=== PATIENT | female | born 1985 | race African-American/Black ===

== ENCOUNTER 2020-12-03 19:55 | Emergency (ER) | payer BC, SELFPAY ==
[2020-12-03 21:33] LABS: Urine Blood 3+ (Negative); Urine Glucose Negative (Negative); Urine Protein Negative (Negative)
[2020-12-03 21:36] LABS: Absolute Lymphocytes (CBC) 0.9 K/uL (0.7-4.9); Basophils % 0.3 % (0-1.3); Hematocrit 32.8 % (36.0-45.0); Lymphocytes % 8.5 % (15.3-44.8); MPV 8.6 fL (7.6-11.3); RBC Red Blood Cell Count 3.86 M/uL (3.86-4.86)
[2020-12-03 21:46] LABS: Protime INR 1.15
[2020-12-03 21:53] LABS: ALT/SGPT 30 U/L (12-78); AST/SGOT 32 U/L (15-37); Albumin 3.8 g/dL (3.4-5.0); Alkaline Phosphatase 104 U/L (45-117); BUN Blood Urea Nitrogen 9 mg/dL (7-18); Bicarbonate 30 mmol/L (21-32); Bilirubin Direct < 0.1 mg/dL (0-0.2); Bilirubin Total 0.3 mg/dL (0.2-1.0); Glucose Level 98 mg/dL (74-106); Potassium 3.7 mmol/L (3.5-5.1); Protein, Total 8.3 g/dL (6.4-8.2); Sodium Level 140 mmol/L (136-145)
--- NOTE | 2020-12-04 00:02 | ER ---
Nurse's Notes [facility] Name: Geno Rianey Age: 35 yrs Sex: Female : 1985 Arrival Date: 12/03/2020 Time: 19:56 Bed 14 Private MD: Diagnosis: Vaginal Bleeding;Postoperative Bleeding, Hysterectomy Presentation: 12/03 20:08 Chief complaint: Patient states: 'I had a hysterectomy on 11/24/20 and today I began vg1 bleeding bright red. Spoke with the CUSTOMS COMPLIANCE DIRECTOR and they told me to come in. I am also having pain behind my Right Knee.'. Coronavirus screen: Client denies travel out of the [place] in the last 14 days. Ebola Screen: Patient negative for fever greater than or equal to 101.5 degrees Fahrenheit, and additional compatible Ebola Virus Disease symptoms. Initial Sepsis Screen: Does the patient meet any 2 criteria? No. Patient's initial sepsis screen is negative. Does the patient have a suspected source of infection? No. Patient's initial sepsis screen is negative. Risk Assessment: Do you want to hurt yourself or someone else? Patient reports no desire to harm self or others. Onset of symptoms was December 03, 2020. 20:08 Method Of Arrival: Ambulatory vg1 20:08 Acuity: NICOLE 3 vg1 Triage Assessment: 20:10 General: Appears in no apparent distress. comfortable, Behavior is calm, cooperative. vg1 Pain: Complains of pain in umbilical area and suprapubic area Pain currently is 7 out of 10 on a pain scale. : Reports vaginal bleeding that is bright red, since today. CUSTOMS COMPLIANCE DIRECTOR: 20:10 LMP N/A - Hysterectomy vg1 Historical: - Allergies: 20:10 No Known Allergies; vg1 - Home Meds: 20:10 Metoprolol Tartrate Oral [Active]; Meclizine Oral [Active]; vg1 - PMHx: 20:10 Hypertension; mitral valve prolapse; vg1 - PSHx: 20:10 Hysterectomy; vg1 - Immunization history:: Adult Immunizations up to date, Client reports receiving the 2nd dose of the Covid vaccine. - Social history:: Smoking status: Patient denies any tobacco usage or history of. Screenin:30 Abuse screen: Denies threats or abuse. Denies injuries from another. Nutritional wh screening: No deficits noted. Tuberculosis screening: No symptoms or risk factors identified. Fall Risk None identified. Assessment: 22:30 General: Appears in no apparent distress. Behavior is calm, cooperative, appropriate wh for age. Pain: Denies pain. Neuro: Level of Consciousness is awake, alert, obeys commands, Oriented to person, place, time, situation, Appropriate for age. Cardiovascular: Capillary refill < 3 seconds. Respiratory: Airway is patent Respiratory effort is even, unlabored, Respiratory pattern is regular, symmetrical. GI: Abdomen is flat, non-distended. : Reports vaginal bleeding that is bright red, moderate flow. EENT: No signs and/or symptoms were reported regarding the EENT system. Derm: Skin is intact, is healthy with good turgor, Skin is pink, warm \T\ dry. normal. Musculoskeletal: Circulation, motion, and sensation intact. 12/04 00:00 Reassessment: Patient appears in no apparent distress at this time. No changes from previously documented assessment. Patient and/or family updated on plan of care and expected duration. Pain level reassessed. Patient is alert, oriented x 3, equal unlabored respirations, skin warm/dry/pink. Vital Signs: 12/03 20:08 BP 122 / 88; Pulse 105; Resp 16; Temp 98.7(O); Pulse Ox 100% ; Weight 77.56 kg; Height vg1 5 ft. 5 in. (165.10 cm); Pain 7/10; 22:00 BP 121 / 82; Pulse 97; Resp 18; Pulse Ox 99% on R/A; wh 12/04 00:00 BP 117 / 86; Pulse 82; Resp 18; Pulse Ox 99% on R/A; wh 12/03 20:08 Body Mass Index 28.46 (77.56 kg, 165.10 cm) vg1 ED Course: 12/03 19:56 Patient arrived in ED. bp1 20:10 Triage completed. vg1 20:10 Arm band placed on. vg1 20:29 Kamlesh Galvan, ASHLEY is Primary Nurse. wh 20:45 Jd Jauregui MD is Attending Physician. mh7 21:00 Patient has correct armband on for positive identification. Bed in low position. Call light in reach. Side rails up X 1. Pulse ox on. NIBP on. 21:00 No provider procedures requiring assistance completed. Inserted saline lock: 20 gauge in right antecubital area, using aseptic technique. Blood collected. 21:41 US Extremity Venous Unilateral Ltd In Process Unspecified. EDMS 22:14 CT Abd/Pelvis - IV Contrast Only In Process Unspecified. EDMS 06 00:15 IV discontinued, intact, bleeding controlled, No redness/swelling at site. wh Administered Medications: No medications were administered Outcome: 00:02 Discharge ordered by MD. engel 00:15 Discharged to home ambulatory, with family. wh 00:15 Condition: stable 00:15 Discharge instructions given to patient, family, Instructed on discharge instructions, follow up and referral plans. POC Demonstrated understanding of instructions, follow-up care, POC 00:16 Patient left the ED. Signatures: Dispatcher [employer] EDMS Kamlesh Galvan, RN ASHLEY Lindy Ness RN RN vg1 Vangie Cornelius Maurice, MD MD 7
--- NOTE | 2020-12-04 00:02 | EDPHYS ---
Physician Documentation [facility] Name: Geno Rainey Age: 35 yrs Sex: Female : 1985 Arrival Date: 12/03/2020 Time: 19:56 Bed 14 Private MD: ED Physician Jd Jauregui HPI: 12/03 22:18 This 35 yrs old Black Female presents to ER via Ambulatory with complaints of Vaginal mh7 Bleeding, Post Surgical Bleeding. 22:18 The patient presents with vaginal bleeding that is moderate. Onset: The mh7 symptoms/episode began/occurred today. Modifying factors: The symptoms are alleviated by nothing, the symptoms are aggravated by nothing. Associated signs and symptoms: Pertinent negatives: constipation, cramping, diarrhea, dyspareunia, dysuria, fever, hematuria, nausea, urinary frequency, vaginal discharge, vomiting. Severity of symptoms: At their worst the symptoms were moderate, earlier today, in the emergency department the symptoms have improved, moderately. States that she had a hysterectomy one week ago and started having vaginal bleeding similar to a menstrual period today. Also complains of pain behind her right knee that started this morning. She denies any other complaints.. 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 - Social history:: Smoking status: Patient denies any tobacco usage or history of. ROS: 22:18 Constitutional: Negative for fever, chills, and weight loss, Eyes: Negative for injury, mh7 pain, redness, and discharge, ENT: Negative for injury, pain, and discharge, Neck: Negative for injury, pain, and swelling, Cardiovascular: Negative for chest pain, palpitations, and edema, Respiratory: Negative for shortness of breath, cough, wheezing, and pleuritic chest pain, Abdomen/GI: Negative for abdominal pain, nausea, vomiting, diarrhea, and constipation, Back: Negative for injury and pain, Skin: Negative for injury, rash, and discoloration, Neuro: Negative for headache, weakness, numbness, tingling, and seizure, Psych: Negative for depression, anxiety, suicide ideation, homicidal ideation, and hallucinations, Allergy/Immunology: Negative for hives, rash, and allergies, Endocrine: Negative for neck swelling, polydipsia, polyuria, polyphagia, and marked weight changes, Hematologic/Lymphatic: Negative for swollen nodes, abnormal bleeding, and unusual bruising. Exam: 22:18 Constitutional: This is a well developed, well nourished patient who is awake, alert, mh7 and in no acute distress. Head/Face: Normocephalic, atraumatic. Eyes: Pupils equal round and reactive to light, extra-ocular motions intact. Lids and lashes normal. Conjunctiva and sclera are non-icteric and not injected. Cornea within normal limits. Periorbital areas with no swelling, redness, or edema. Neck: Trachea midline, no thyromegaly or masses palpated, and no cervical lymphadenopathy. Supple, full range of motion without nuchal rigidity, or vertebral point tenderness. No Meningismus. Chest/axilla: Normal chest wall appearance and motion. Nontender with no deformity. No lesions are appreciated. Cardiovascular: Regular rate and rhythm with a normal S1 and S2. No gallops, murmurs, or rubs. Normal PMI, no JVD. No pulse deficits. Respiratory: Lungs have equal breath sounds bilaterally, clear to auscultation and percussion. No rales, rhonchi or wheezes noted. No increased work of breathing, no retractions or nasal flaring. Abdomen/GI: Soft, non-tender, with normal bowel sounds. No distension or tympany. No guarding or rebound. No evidence of tenderness throughout. Back: No spinal tenderness. No costovertebral tenderness. Full range of motion. Skin: Warm, dry with normal turgor. Normal color with no rashes, no lesions, and no evidence of cellulitis. MS/ Extremity: Pulses equal, no cyanosis. Neurovascular intact. Full, normal range of motion. Neuro: Awake and alert, GCS 15, oriented to person, place, time, and situation. Cranial nerves II-XII grossly intact. Motor strength 5/5 in all extremities. Sensory grossly intact. Cerebellar exam normal. Normal gait. Psych: Awake, alert, with orientation to person, place and time. Behavior, mood, and affect are within normal limits. 23:52 : CVA tenderness, is absent, Pelvic Exam: The exam is refused by the 7 patient/guardian. The risks and consequences are understood by the patient. Vital Signs: 20:08 BP 122 / 88; Pulse 105; Resp 16; Temp 98.7(O); Pulse Ox 100% ; Weight 77.56 kg; Height vg1 5 ft. 5 in. (165.10 cm); Pain 7/10; 22:00 BP 121 / 82; Pulse 97; Resp 18; Pulse Ox 99% on R/A; wh 12/04 00:00 BP 117 / 86; Pulse 82; Resp 18; Pulse Ox 99% on R/A; wh 12/03 20:08 Body Mass Index 28.46 (77.56 kg, 165.10 cm) vg1 MDM: 12/03 23:52 Differential diagnosis: dysmenorrhea, menorrhea, urinary tract infection, Postoperative mh7 Bleeding. Data reviewed: vital signs, nurses notes, lab test result(s), CBC, electrolytes, urinalysis, radiologic studies, CT scan, ultrasound. Data interpreted: Pulse oximetry: on room air is 100 %. Interpretation: normal. Counseling: I had a detailed discussion with the patient and/or guardian regarding: the historical points, exam findings, and any diagnostic results supporting the discharge/admit diagnosis, lab results, radiology results, the need for outpatient follow up, an OB/Gyne specialist, to return to the emergency department if symptoms worsen or persist or if there are any questions or concerns that arise at home. Response to treatment: the patient's symptoms have resolved after treatment, the patient's blood pressure is in an acceptable range, mental status has returned to baseline, the patient no longer shows bradycardia, the patient is not short of breath, the patient is not tachycardic, the patient's pain is gone, the patient's temperature has normalized. ED course: Discussed with Dr. Tana Dick, conciliator at [facility] for Dr. Ohara. CT findings consistent with expected post operative findings. Recommend patient with no strenuous activity, nothing in vagina but may wear pads, may expect vaginal bleeding over next few days but should be heavier than moderate menstrual bleeding, and follow up with Dr. Ohara in 3-4 days.. Information discussed with patient who is agreeable with plan.. 12/04 00:02 Patient medically screened. [facility] 12/03 21:01 Order name: CBC with Diff; Complete Time: 23:32 [facility] 12/03 21:01 Order name: Basic Metabolic Panel; Complete Time: 23:32 [facility] 12/03 21:01 Order name: Protime (+inr); Complete Time: 23:32 [facility] 12/03 21:01 Order name: Ptt, Activated; Complete Time: 23:32 [facility] 12/03 21:01 Order name: LFT's; Complete Time: 23:32 [facility] 12/03 21:04 Order name: Type And Screen; Complete Time: 23:32 [facility] 12/03 21:01 Order name: Urine Dipstick-Ancillary (obtain specimen); Complete Time: 21:28 [facility] 12/03 21:03 Order name: CT Abd/Pelvis - IV Contrast Only [facility] 12/03 21:03 Order name: US Extremity Venous Unilateral Ltd [facility] 12/03 21:33 Order name: Urine Dipstick-Ancillary; Complete Time: 23:32 EDMS Administered Medications: No medications were administered Disposition: 12/04/20 00:02 Discharged to Home. Impression: Vaginal Bleeding, Postoperative Bleeding, Hysterectomy. - Condition is Stable. - Discharge Instructions: Laparoscopically Assisted Vaginal Hysterectomy, Care After. - Medication Reconciliation Form, Thank You Letter, Antibiotic Education, Prescription Opioid Use form. - Follow up: Private Physician; When: 2 - 3 days; Reason: Worsening of condition, Recheck today's complaints, Continuance of care, Re-evaluation by your physician. - Problem is new. - Symptoms have improved. Signatures: Dispatcher [employer] EDMS Kamlesh Galvan RN RN wh Garcia, Victoria RN RN vg1 Jd Jauregui MD MD mh7 Corrections: (The following items were deleted from the chart) 00:16 00:02 12/04/2020 00:02 Discharged to Home. Impression: Vaginal Bleeding; Postoperative wh Bleeding, Hysterectomy. Condition is Stable. Forms are Medication Reconciliation Form, Thank You Letter, Antibiotic Education, Prescription Opioid Use. Follow up: Private Physician; When: 2 - 3 days; Reason: Worsening of condition, Recheck today's complaints, Continuance of care, Re-evaluation by your physician. Problem is new. Symptoms have improved. mh7
[2020-12-04 00:33] VITALS: TEMP 98.7
[2020-12-04 00:34] VITALS: O2SAT 99
[2020-12-04 00:35] VITALS: BP 117/86
--- NOTE | 2020-12-04 08:20 | RAD REPORT ---
EXAM DESCRIPTION: US - Extremity Venous Uni Ltd - 12/03/2020 9:42 pm CLINICAL HISTORY: PAIN Preliminary findings provided at the time of the study. COMPARISON: None. TECHNIQUE: Real-time sonographic evaluation of the right lower extremity deep venous systems was per formed. FINDINGS: Normal compressibility, flow augmentation, phasic flow and spontaneous flow are identified in the right lower extremity common femoral, superficial femoral, popliteal and posterior tibial vei ns. No intraluminal filling defects seen. IMPRESSION: No DVT in the right lower extremity.
--- NOTE | 2020-12-04 20:20 | RAD REPORT ---
EXAM DESCRIPTION: CT - Abdomen Pelvis W Contrast - 12/04/2020 6:38 am CLINICAL HISTORY: S/p recent hysterectomy;Vaginal bleeding COMPARISON: None Available. TECHNIQUE: CT of the abdomen and pelvis performed following IV administration of iodinated contras t.. This exam was performed according to our departmental dose-optimization program, which includes a utomated exposure control, adjustment of the mA and/or kV according to patient size and/or use of ite rative reconstruction technique. FINDINGS: Lung Bases: The visualized lung bases are clear. Bones: No destructive bone lesions identified. Abdomen: Liver: The liver has normal size and density. No intrahepatic biliary dilatation. Gallbladder: Prior cholecystectomy. Spleen, Pancreas, and Adrenal Glands: The spleen, pancreas, and adrenal glands are unremarkable. Kidneys: No hydronephrosis or obstructing calculus. Vasculature: The aorta and IVC have normal caliber and position. The portal vein is patent. The pro ximal visceral and renal arteries are patent. Stomach: The stomach and duodenum have normal course. Other: Small amount of free air. No definite lymphadenopathy. Scattered foci of air in the anteri or abdominal wall subcutaneous soft tissues or postoperative. Pelvis: Bladder: Wall thickening of the urinary bladder. Bowel: No dilated loops of large or small bowel. Appendix: The appendix is upper limits of normal. Pelvis: Prior hysterectomy. No well-circumscribed fluid collection. Indeterminate heterogeneous 4.7 c m right ovarian cyst. IMPRESSION: 1. Moderate volume free intraperitoneal air. This is may be related to recent hysterecto my. 2. Ill-defined free fluid in the pelvis. This may be postoperative however this may represent hemorrh agic or infectious infectious fluid collection. 3. The appendix is upper limits of normal and there is adjacent inflammatory change however again, th is may be related to recent hysterectomy. Continued follow-up may be helpful. 4. 4.7 cm heterogeneous structure in the right adnexa thought to represent a hemorrhagic ovarian cyst however this remains indeterminate indeterminate. Recommend prompt follow-up with pelvic US. Referen ce: J Am Gale Radiol 2013;10:[id number] 5. Mild wall thickening of the bladder. This may be related to adjacent inflammatory change however c ystitis could also produce this appearance. Electronically signed by: Mendoza Gavin 12/03/2020 10:52 PM CDT Due to temporary technical issues with the PACS/Fluency reporting system, reports are being signed by the in house radiologists without review as a courtesy to insure prompt reporting. The interpreting radiologist is fully responsible for the content of the report.
== END 2020-12-04 00:16 | disposition home or self-care (01) ==
LOC: ER 19:55
DX: N99.820 Postprocedural hemorrhage of a genitourinary system organ or structure following a genitourinary system procedure (principal); Z90.710 Acquired absence of both cervix and uterus; I10 Essential (primary) hypertension
CPT/HCPCS: 85025; 80048; 36415; 86900; 86850; 85610; 86901; 80076; 85730; 81003; 74177; 93971; 99284; Q9967